=== PATIENT | female | born 1950 | race Caucasian/White ===

== ENCOUNTER 2017-02-14 06:57 | Emergency (ER) | payer OTHER, MEDICARE ==
[~2017-02-14] VITALS: Ht 172.7 cm; Wt 78.2 kg
[~2017-02-14 06:57] MED LIST: CALCTAB5 PO; WARF5TAB90 PO; WARF7.5T4 PO
[2017-02-14 07:00] VITALS: TEMP 36.6; Ht 172.7 cm; Wt 78.2 kg
[2017-02-14] MEDS ORDERED: ONDANSETRON INJ 2 MG/ML 2 ML VIAL IV STA (07:28)
[2017-02-14] MEDS ORDERED: LIDOCAINE/EPINEPH/TETRACAINE 1 EA SYR EXT STA (07:28)
[2017-02-14] MEDS ORDERED: FAMOTIDINE 20MG/102 ML D5W IV STA (07:28)
[2017-02-14] MEDS ORDERED: SODIUM CHLORIDE 0.9% 1000ML 1,000 ML IV STA ×2 (07:28)
[2017-02-14] MEDS ORDERED: XYLOCAINE 1%/SOD BICARB 20 ML VIAL INFIL ONE (07:30)
[2017-02-14 07:54] LABS: BASO % 0.2 %; BASO ABS # 0.01 K/uL (0-0.2); COMPLETE YES; EOS % 2.3 %; HEMATOCRIT 42.1 % (37-47); IG% 0.2 %; LYMPH % 4.7 %; LYMPH ABS # 0.29 K/uL (1.2-3.4); MEAN CELL VOLUME 84.9 fL (80-100); MEAN CORPUSCULAR HEMOGLOBIN 28.6 pg (25-34); MEAN CORPUSCULAR HGB CONC 33.7 g/dl (32-36); MEAN PLATELET VOLUME 9.7 fL (7.4-10.4); MONO % 2.6 %; PLATELET COUNT 224 K/uL (130-400); RED BLOOD COUNT 4.96 M/uL (4.2-5.4); WHITE BLOOD COUNT 6.18 K/uL (4.8-10.8)
[2017-02-14] MEDS ORDERED: CALCTAB5 PO (08:01)
[2017-02-14] MEDS ORDERED: WARF10TA4 PO (08:01)
--- NOTE | 2017-02-14 08:04 | DIAGNOSTIC IMAGING REPORT ---
CHEST ONE VIEW PORTABLE CLINICAL HISTORY: SYNCOPAL EPISODE COMPARISON STUDY: No previous studies for comparison. FINDINGS: The cardiac and mediastinal contours are normal. There is no evidence of focal pulmonary consolidation. There is no evidence of failure. No pleural effusions are visualized.[ IMPRESSION: No active disease in the chest. Electronically signed by: Parker Felder M.D. 02/14/2017 8:02 AM Dictated Date/Time: 02/14/2017 8:02 AM
[2017-02-14 08:09] LABS: ALT/SGPT 19 U/L (12-78); BLOOD UREA NITROGEN 14 mg/dl (7-18); CALCIUM 8.8 mg/dl (8.5-10.1); CARBON DIOXIDE 29 mmol/L (21-32); CHLORIDE 103 mmol/L (98-107); CREATININE 0.76 mg/dl (0.60-1.20); GLUCOSE 125 mg/dl (70-99); INR 2.5 (0.9-1.1); POTASSIUM 3.9 mmol/L (3.5-5.1); PROTHROMBIN TIME (PATIENT) 27.7 SECONDS (9.0-12.0); SODIUM 139 mmol/L (136-145)
[2017-02-14 08:14] LABS: URINE APPEARANCE CLOUDY (CLEAR); URINE BILIRUBIN NEG (NEG); URINE COLOR YELLOW; URINE EPITHELIAL CELL AUTO 20-30 /lpf (0-5); URINE NITRITE NEG (NEG); URINE SPECIFIC GRAVITY 1.018 (1.000-1.030); UROBILINOGEN NEG (NEG)
[2017-02-14 08:14] LABS: ALB/GLOB RATIO 1.2 (0.9-2); ALKALINE PHOSPHATASE 71 U/L (45-117); AST/SGOT 15 U/L (15-37); CKMB/CK RATIO 1.3 (0-3.0)
--- NOTE | 2017-02-14 08:23 | DIAGNOSTIC IMAGING REPORT ---
CT SCAN OF THE BRAIN WITHOUT IV CONTRAST CLINICAL HISTORY: Trauma. Syncope. COMPARISON STUDY: No priors. TECHNIQUE: Unenhanced axial CT scan of the brain is performed from the vertex to the skull base. Automated dose control exposure was utilized. CT DOSE: 690.05 mGycm FINDINGS: Brain parenchyma: The brain parenchyma is normal in appearance. There is no hemorrhage, mass effect, or evidence of acute territorial ischemia by CT criteria. Ortiz-white matter is preserved. No extra-axial fluid collection is seen. Ventricles, sulci, cisterns: Normal in configuration. Intracranial vasculature: The visualized intracranial vasculature at the skull base is normal in appearance. Calvarium: There is no depressed calvarial fracture. Soft tissues: There is a small left supraorbital scalp contusion. Sinuses and mastoids: The visualized paranasal sinuses are clear. The mastoid air cells are well pneumatized. Orbits: The bony orbits are grossly intact. IMPRESSION: No acute intracranial abnormality. Electronically signed by: Mina Garcia M.D. 02/14/2017 8:22 AM Dictated Date/Time: 02/14/2017 8:15 AM
[2017-02-14 08:37] LABS: MANUAL MICROSCOPIC REQUIRED? NO; REVIEW REQ? NO
--- NOTE | 2017-02-14 09:24 | EMERGENCY ROOM VISIT NOTE ---
History First contact with patient: 07:08 Chief Complaint: SYNCOPE (NEAR SYNCOPE) Stated Complaint: NAUSEA,FAINTING,CUT FOREHEAD History of Present Illness Patient is a 66-year-old white female with history of factor V Leiden, chronically anticoagulated on Coumadin, who presents to emergency department accompanied by her daughter for evaluation of a syncopal episode this morning. Patient states that she ate chili for dinner last evening, then noted that her stomach was upset through the night. She felt intermittently nauseous and was doing a lot of belching. She states that she was up a few times to urinate overnight which is normal for her. A little before 6:00, she states that she felt like she needed to have a bowel movement. She got into the bathroom and had an episode of diarrhea. She denies that it was bloody or melanotic. She was feeling poorly while seated on the toilet, and when she stood up to leave the bathroom, she states that she began to feel a little bit dizzy, then, the next thing that she remembers she is laying on the bathroom floor. There was a small spot of blood, that she realized came from a laceration above her left eyebrow. She states that she was able to get herself up into her bedroom where she laid on the bed for a little bit. She held pressure to her laceration with a towel. She felt a little weak and jittery while laying down. She believes that she was only on the floor in the bathroom for a few minutes. She then called her daughter, who subsequently brought her to the emergency department. The patient only notes slight soreness in the left forehead where she struck it. She denies generalized headache. She denies any double or blurry vision, no neck pain. She still feels slightly queasy and nauseous, and has been doing a lot of belching. She denies any abdominal pain. She denies chest pain, palpitations or shortness of breath. Her last INR was 2.5 10 days ago. Last tetanus was 6 years ago. Review of Systems Review of systems as per HPI. All other systems reviewed were negative. 10 systems reviewed. 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 See Problem List. Social History Smoking Status: Never Smoker Marital Status: Housing Status: lives alone Occupation Status: retired Current/Historical Medications Scheduled Calcium Carbonate (Caltrate 600), 600 MG PO BID Warfarin Sod (Jantoven), 7.5 MG PO WK Warfarin Sod (Jantoven), 10 MG PO 6XWK Allergies Coded Allergies: Naproxen (Verified Allergy, Mild, SHORTNESS OF BREATH, 02/14/17) Penicillins (Unverified Adverse Reaction, Intermediate, SHORTNESS OF BREATH, 02/14/17) Sulfa Antibiotics (Unverified Adverse Reaction, Intermediate, RASH, ) Physical Exam Vital Signs Date Time Temp Pulse Resp B/P Pulse Ox O2 Delivery O2 Flow Rate FiO2 02/14/17 09:37 81 143/55 98 02/14/17 08:46 79 16 130/59 97 Room Air 02/14/17 07:47 77 119/54 83 126/65 93 107/51 02/14/17 07:44 90 02/14/17 07:00 36.6 92 20 128/75 97 Room Air Physical Exam GENERAL: Patient is a pleasant, well-appearing 66-year-old white female who is awake and alert and in no acute distress. HEENT: Head - normocephalic and atraumatic. Pupils are equal, round, and reactive to light. Extraocular eye muscles are intact and sclera are anicteric. Ears - bilaterally patent canals with no evidence of hemotympanum. Mouth - moist buccal mucosa with no trauma to the teeth or signs of malocclusion. 3 cm laceration noted over the lateral left eyebrow. No facial bony tenderness to palpation. Neck: The neck is supple and there is no pain to palpation over the posterior cervical spine and no obvious step-offs or deformities. There is no JVD or tracheal deviation. Chest: There are no signs of deformities, contusions or abrasions to the chest wall. There is no obvious crepitus or paradoxical chest rise. Heart: Regular rate, and regular rhythm. There is a normal S1 and S2 with no murmurs, clicks, or gallops appreciated. Lungs: Breath sounds equal and clear to auscultation without wheezes, rales, or rhonchi heard. Abdomen: Bowel sounds are present. Abdomen is soft, nontender and nondistended. No guarding, rebound or rigidity. Extremities: No obvious trauma, deformities, contusions, or edema. There are easily palpable peripheral pulses. Neuro: The patient is awake and alert and easily able to follow commands. Muscle strength is 5 out of 5 in all 4 extremities. Otherwise, neuro exam is unremarkable. Medical Decision & Procedures ER Provider Diagnostic Interpretation: CHEST ONE VIEW PORTABLE CLINICAL HISTORY: SYNCOPAL EPISODE COMPARISON STUDY: No previous studies for comparison. FINDINGS: The cardiac and mediastinal contours are normal. There is no evidence of focal pulmonary consolidation. There is no evidence of failure. No pleural effusions are visualized. IMPRESSION: No active disease in the chest. CT SCAN OF THE BRAIN WITHOUT IV CONTRAST CLINICAL HISTORY: Trauma. Syncope. COMPARISON STUDY: No priors. TECHNIQUE: Unenhanced axial CT scan of the brain is performed from the vertex to the skull base. Automated dose control exposure was utilized. CT DOSE: 690.05 mGycm FINDINGS: Brain parenchyma: The brain parenchyma is normal in appearance. There is no hemorrhage, mass effect, or evidence of acute territorial ischemia by CT criteria. Ortiz-white matter is preserved. No extra-axial fluid collection is seen. Ventricles, sulci, cisterns: Normal in configuration. Intracranial vasculature: The visualized intracranial vasculature at the skull base is normal in appearance. Calvarium: There is no depressed calvarial fracture. Soft tissues: There is a small left supraorbital scalp contusion. Sinuses and mastoids: The visualized paranasal sinuses are clear. The mastoid air cells are well pneumatized. Orbits: The bony orbits are grossly intact. IMPRESSION: No acute intracranial abnormality. Laboratory Results 02/14/17 07:38 Red Blood Count 4.96, Mean Corpuscular Volume 84.9, Mean Corpuscular Hemoglobin 28.6, Mean Corpuscular Hemoglobin Concent 33.7, Mean Platelet Volume 9.7, Neutrophils (%) (Auto) 90.0, Lymphocytes (%) (Auto) 4.7, Monocytes (%) (Auto) 2.6, Eosinophils (%) (Auto) 2.3, Basophils (%) (Auto) 0.2, Neutrophils # (Auto) 5.57, Lymphocytes # (Auto) 0.29, Monocytes # (Auto) 0.16, Eosinophils # (Auto) 0.14, Basophils # (Auto) 0.01 02/14/17 07:38 Test 02/14/17 07:38 02/14/17 07:53 White Blood Count 6.18 K/uL (4.8-10.8) Red Blood Count 4.96 M/uL (4.2-5.4) Hemoglobin 14.2 g/dL (12.0-16.0) Hematocrit 42.1 % (37-47) Mean Corpuscular Volume 84.9 fL (80-100) Mean Corpuscular Hemoglobin 28.6 pg (25-34) Mean Corpuscular Hemoglobin Concent 33.7 g/dl (32-36) Platelet Count 224 K/uL (130-400) Mean Platelet Volume 9.7 fL (7.4-10.4) Neutrophils (%) (Auto) 90.0 % Lymphocytes (%) (Auto) 4.7 % Monocytes (%) (Auto) 2.6 % Eosinophils (%) (Auto) 2.3 % Basophils (%) (Auto) 0.2 % Neutrophils # (Auto) 5.57 K/uL (1.4-6.5) Lymphocytes # (Auto) 0.29 K/uL (1.2-3.4) Monocytes # (Auto) 0.16 K/uL (0.11-0.59) Eosinophils # (Auto) 0.14 K/uL (0-0.5) Basophils # (Auto) 0.01 K/uL (0-0.2) RDW Standard Deviation 41.6 fL (36.4-46.3) RDW Coefficient of Variation 13.4 % (11.5-14.5) Immature Granulocyte % (Auto) 0.2 % Immature Granulocyte # (Auto) 0.01 K/uL (0.00-0.02) Prothrombin Time 27.7 SECONDS (9.0-12.0) Prothromb Time International Ratio 2.5 (0.9-1.1) Anion Gap 7.0 mmol/L (3-11) Est Creatinine Clear Calc Drug Dose 81.1 ml/min Estimated GFR () 95.4 Estimated GFR (Non- 82.3 BUN/Creatinine Ratio 18.0 (10-20) Calcium Level 8.8 mg/dl (8.5-10.1) Total Bilirubin 0.7 mg/dl (0.2-1) Aspartate Amino Transf (AST/SGOT) 15 U/L (15-37) Alanine Aminotransferase (ALT/SGPT) 19 U/L (12-78) Alkaline Phosphatase 71 U/L (45-117) Total Creatine Kinase 61 U/L (26-192) Creatine Kinase MB 0.8 ng/ml (0.5-3.6) Creatine Kinase MB Ratio 1.3 (0-3.0) Troponin I < 0.015 ng/ml (0-0.045) Total Protein 6.5 gm/dl (6.4-8.2) Albumin 3.6 gm/dl (3.4-5.0) Globulin 2.9 gm/dl (2.5-4.0) Albumin/Globulin Ratio 1.2 (0.9-2) Lipase 74 U/L (73-393) Urine Color YELLOW Urine Appearance CLOUDY (CLEAR) Urine pH 6.0 (4.5-7.5) Urine Specific [place] 1.018 (1.000-1.030) Urine Protein NEG (NEG) Urine Glucose (UA) NEG (NEG) Urine Ketones 2+ (NEG) Urine Occult Blood 2+ (NEG) Urine Nitrite NEG (NEG) Urine Bilirubin NEG (NEG) Urine Urobilinogen NEG (NEG) Urine Leukocyte Esterase SMALL (NEG) Urine WBC (Auto) 1-5 /hpf (0-5) Urine RBC (Auto) >30 /hpf (0-4) Urine Hyaline Casts (Auto) 1-5 /lpf (0-5) Urine Epithelial Cells (Auto) 20-30 /lpf (0-5) Urine Bacteria (Auto) NEG (NEG) Medications Administered Medications (Trade) Dose Ordered Sig/Morales Route Start Time Stop Time Status Last Admin Dose Admin Sodium Chloride 1,000 ml @ 999 mls/hr Q1H1M STAT IV 02/14/17 07:28 02/14/17 08:28 DC 02/14/17 07:55 999 MLS/HR Sodium Chloride (Nss 1000ml) 1,000 ml @ 250 mls/hr Q4H STAT IV 02/14/17 07:28 02/14/17 09:47 DC 02/14/17 07:28 250 MLS/HR Tetracaine/ Epinephrine/ Lidocaine (L.e.t. Gel 4%/ 1:100/0.5%) 1 ea UD STAT EXT 02/14/17 07:28 02/14/17 07:33 DC 02/14/17 07:55 1 EA ECG Indication: syncope Rate (beats per minute): 74 Rhythm: other (SR with premature supraventricular complexes) Comparison ECG Date: no prior available ED Course The patient was seen and assessed as above. Old records were reviewed. History and presentation were reviewed with attending physician, and ED workup was agreed upon. Patient was also seen and assessed by Dr. Gray. IV lock was initiated. Patient was hydrated with normal saline solution. She was ordered Pepcid and Zofran, but declined these. LET gel was applied to the left eyebrow laceration. EKG was performed and was as noted above. Laboratory studies were collected including CBC with differential, PT-INR, CMP, urinalysis and cardiac enzymes. Given the fall, syncopal episode and warfarin therapy, head CT was performed. Chest x-ray was obtained and was unremarkable. Patient had orthostatic vital signs performed prior to IV hydration, which were concerning for orthostasis. Head CT did not demonstrate any skull fracture or acute intracranial bleed. Laboratory studies did not demonstrate an elevated white count. No anemia. INR is therapeutic at 2.5. Electrolytes are within normal limits. Renal function normal. Liver functions and lipase are not elevated and cardiac enzymes are negative 1. Urinalysis no hematuria, small amount leukocyte esterase, otherwise no bacteria or nitrates. It was not felt that this was indicative of infection. Left eyebrow laceration was repaired by Dr. Gray. Please refer to his separate procedure note for further information. The patient had been feeling poorly overnight, may have been slightly dehydrated and appears to have suffered a vasovagal syncopal episode while taking her physician in the bathroom. Head CT did not demonstrate any acute intracranial bleed or skull fracture. There is no evidence for arrhythmia and I do not suspect seizure. Wound was repaired as above. The patient felt better after the IV hydration. Head injury and wound care instructions were outlined with her. Vital signs remained stable. Supportive care was discussed. She was discharged home into the care of her daughter in good condition. Differential includes seizure, arrhythmia, acute coronary syndrome, orthostasis , dehydration, electrolyte abnormalities, anemia, hypoglycemia, among others. Medical Decision See ED course. Impression Primary Impression: Syncope Additional Impression: Forehead laceration Departure Information Referrals Kanwal Solis D.O. (PCP) Patient Instructions [facility] Additional Instructions Keep wound clean and dry. Clean gently with mild soap and water. Use an antibiotic ointment for 3-4 days, then let wound dry. Suture removal in 6-7 days. Return sooner for any signs of infection (increasing redness, swelling, drainage). Ice and elevate for swelling and pain. Continue current medications. Acetaminophen(Tylenol) may be used for fever or pain. Use 1000mg every six hours as needed. Avoid using more than 4000mg in a 24 hour period. Rest and drink plenty of fluids as tolerated. Slow sips of water or sports drinks are recommended instead of large amounts all at once. Once your stomach is settled start with a clear liquid diet (jello, soup broth, etc.) and then advance as tolerated. You should avoid full, heavy meals for about 24 hrs from the time your symptoms resolved. Return to the ER for vomiting, fevers, abdominal pain, chest pains, difficulty breathing, black or bloody stools, passing out, severe headache, passing out, slurred speech, numbness, weakness, visual changes, worsening of your condition , or as needed. Follow up with your primary physician in 2-3 days for a recheck of your current condition. Problem Qualifiers
--- NOTE | 2017-02-14 09:25 | EMERGENCY ROOM VISIT NOTE ---
ED Visit Note First contact with patient: 07:08 A 66 year old female with near syncope and facial laceration was fully evaluated by Kelsey Mendes PA-C. Please see her note. I also independently evaluated the patient and sutured her laceration. Location: Left forehead Total length: 3 cm linear laceration Complexity: Simple The target area was anesthetized with LET gel and further anesthetized with 1 % lidocaine without epinephrine. Copious irrigation was performed using normal saline. The skin was re-prepped with betadine and a sterile field set. The wound was explored for foreign bodies and none found. Examination revealed no injury to deep structures such as tendons, bone, or significant blood vessels. Debridement was not performed. The wound edges were approximated using 5, 6-0 simple running nylon sutures. Hemostasis and excellent approximation was achieved. Antibacterial ointment and a sterile dressing applied. Detailed wound care instructions and signs and symptoms of infection reviewed with the patient. No complications and the patient tolerated the procedure well.
[2017-02-14 09:37] VITALS: BP 143/55; PULSE 81; O2SAT 98
== END 2017-02-14 09:38 | disposition home or self-care (01) ==
LOC: C.EDB 06:58
DX: R55 Syncope and collapse (principal); R11.0 Nausea; Z79.01 Long term (current) use of anticoagulants; D68.51 Activated protein C resistance; S01.81XA Laceration without foreign body of other part of head, initial encounter; W19.XXXA Unspecified fall, initial encounter; Y92.89 Other specified places as the place of occurrence of the external cause

== ENCOUNTER 2017-02-20 11:10 | Emergency (ER) | payer OTHER, MEDICARE ==
[~2017-02-20] VITALS: Ht 175.3 cm; Wt 78.0 kg
[~2017-02-20 11:10] MED LIST changes: +WARF10TA4 PO; -WARF5TAB90 PO
[2017-02-20 11:12] VITALS: BP 110/62; PULSE 71; TEMP 36.5; O2SAT 97; Ht 175.3 cm; Wt 78.0 kg
--- NOTE | 2017-02-20 11:21 | EMERGENCY ROOM VISIT NOTE ---
ED Visit Note First contact with patient: 11:14 CHIEF COMPLAINT: Suture removal facial laceration HISTORY of present illness: This 66-year-old female patient returns to the ED today for removal of sutures that were placed 6 days ago into her face. There has been no swelling, redness, or drainage from the wound. The patient feels like the laceration is healing well. REVIEW OF SYSTEMS: 6 system review was performed and was negative unless stated otherwise in history of present illness. PMH: EMR was reviewed. No change from prior ER visit SOCIAL HISTORY: No change from prior ER visit PHYSICAL EXAM: Vital Signs: Were reviewed Reviewed Nurse's notes. GEN.: 66-year -old white female appears in no acute distress. MENTAL Status: Alert and oriented 3. FACE: There is a sutured wound above the left eyebrow with no signs of infection. There is no erythema, swelling, or tenderness. EMERGENCY DEPARTMENT COURSE: The sutures were removed without any difficulty and there was no separation of the wound edges. DIAGNOSIS: Healing facial laceration and suture removal DISCHARGE INSTRUCTIONS AND TREATMENT: Wash any remaining crusts off of the wound today and resume your normal activities. Problem List Medical Problems: (1) Factor 5 Leiden mutation, heterozygous Status: Chronic (2) History of DVT (deep vein thrombosis) Status: Resolved (3) Hypercoagulable state Status: Chronic (4) [facility] (current) use of anticoagulants Status: Chronic Current/Historical Medications Scheduled Calcium Carbonate (Caltrate 600), 600 MG PO BID Warfarin Sod (Jantoven), 7.5 MG PO WK Warfarin Sod (Jantoven), 10 MG PO 6XWK Allergies Coded Allergies: Naproxen (Verified Allergy, Mild, SHORTNESS OF BREATH, 02/14/17) Penicillins (Unverified Adverse Reaction, Intermediate, SHORTNESS OF BREATH, 02/14/17) Sulfa Antibiotics (Unverified Adverse Reaction, Intermediate, RASH, ) Vital Signs Date Time Temp Pulse Resp B/P Pulse Ox O2 Delivery O2 Flow Rate FiO2 02/20/17 11:12 36.5 71 18 110/62 97 Room Air Departure Information Referrals Kanwal Solis D.O. (PCP) Patient Instructions [facility]
[2017-02-20] MEDS ORDERED: XYLOCAINE 1%/SOD BICARB 20 ML VIAL INFIL ONE (11:30)
== END 2017-02-20 11:28 | disposition home or self-care (01) ==
LOC: C.EDB 11:11 → C.EDD 11:28
DX: S01.81XD Laceration without foreign body of other part of head, subsequent encounter (principal); X58.XXXD Exposure to other specified factors, subsequent encounter; D68.51 Activated protein C resistance; D68.59 Other primary thrombophilia; Z86.718 Personal history of other venous thrombosis and embolism; Z79.01 Long term (current) use of anticoagulants

== ENCOUNTER → 2017-10-03 | Outpatient (CLI) | payer OTHER, MEDICARE ==
--- NOTE | 2017-10-04 07:42 | MAMMOGRAPHY REPORT ---
BILATERAL DIGITAL SCREENING MAMMOGRAM WITH CAD: 10/03/2017 CLINICAL HISTORY: Routine screening. Patient has no complaints. TECHNIQUE: Bilateral CC and MLO views were obtained. Current study was also evaluated with a Compute r Aided Detection (CAD) system. COMPARISON: Comparison is made to exams dated: 09/29/2016 mammogram, 09/23/2015 mammogram, 09/17/2014 mammogram, 07/30/2013 mammogram, 07/17/2012 mammogram, and 06/22/2011 mammogram - [facility] nter. BREAST COMPOSITION: There are scattered areas of fibroglandular density in both breasts. FINDINGS: The parenchymal pattern is similar to prior mammograms. There is stable asymmetry in the lateral left breast. No developing mass, architectural distortion or cluster of suspicious microcalc ifications is seen in either breast. IMPRESSION: ACR BI-RADS CATEGORY 2: BENIGN There is no mammographic evidence of malignancy. A 1 year screening mammogram is recommended. The pa tient will receive written notification of the results. Approximately 10% of breast cancers are not detected with mammography. A negative mammographic report should not delay biopsy if a clinically suggestive mass is present. Amber Cole M.D. ay/:10/03/2017 15:28:16 Automobile Sales Representative: Kacey SIMMS(Kalin)([place])([place]), [facility] letter sent: Normal 1/2 BI-RADS Code: ACR BI-RADS Category 2: Benign
== END | disposition home or self-care (01) ==
LOC: C.MAMM 09:21
PROVIDERS: ATTEND Family Medicine
DX: Z12.31 Encounter for screening mammogram for malignant neoplasm of breast (principal)